=== PATIENT | female | born 1995 | race Caucasian/White ===

== ENCOUNTER 2020-06-10 12:13 | Outpatient (CLI) | payer BC, SELFPAY ==
--- NOTE | 2020-06-10 12:32 | US_ITS ---
WS: [id number] TRANSABDOMINAL FIRST TRIMESTER ULTRASOUND REASON FOR EXAM: NORMAL ,PRIMIGRAVIDA : 1 PARA: 0 COMPARISON: None available. FINDINGS: Cervical length is 4.3 cm; closed. Single live intrauterine . [place] rump length measuring 5.6 cm. EGA 12 weeks 1 day 97.5 percentile (11 weeks 1 day to 13 weeks 1 day). cardiac tones 144 BPM. Estimated date of delivery 12/22/2020. Right ovary measures 2.8 cm x 2.6 cm x 1.8 cm. Left ovary measures 2.4 cm x 2.7 cm x 2.3 cm. No fluid in the cul-de-sac. No pelvic mass. US/US OB <= 14 weeks fetus [id number] IMPRESSION: Single viable intrauterine with EGA of 12 weeks 1 day.
== END 2020-06-10 12:14 | disposition home or self-care (01) ==
PROVIDERS: Visit Provider Family Medicine
DX: Z34.01 Encounter for supervision of normal first pregnancy, first trimester; Z3A.12 12 weeks gestation of pregnancy
CPT/HCPCS: 76801

== ENCOUNTER 2020-08-08 12:46 | Outpatient (CLI) | payer OTHER, BC, SELFPAY ==
--- NOTE | 2020-08-08 12:56 | US_ITS ---
WS: [id number] ULTRASOUND OB COMPLETE TECHNIQUE: Complete ultrasound. CLINICAL INFORMATION: ANATOMY COMPARISON: None. FINDINGS: Cervix measures 6.2 cm Single interuterine gestation is identified with vertex presentation. Placenta is anterior. Placenta grade 0. Normal amniotic fluid volume. cardiac activity: 157 BPM. AGA: 21w0d NADEEM by ultrasound: 12/19/2020 Estimated weight: 396 g., %. BDP: 4.8 cm = 20w4d HC: 18.6 cm = 21w0d AC: 16.2 cm = 21w2d FEMUR LENGTH: 3.4 cm = 20w6d Anatomic survey: Four-chamber heart view difficult to visualize. Anatomic survey is otherwise normal. Normal stomach. Kidneys and bladder are normal. Normal 3 vessel cord. Normal 3 vessel cord insertion. Normal spine. Intracranial contents are normal. Normal posteri or fossa and cisterna magna. US/US OB >= 14 weeks fetus [id number] IMPRESSION: 1. Single intrauterine with visualized cardiac activity. AGA 21w0d w ith NADEEM 12/19/2020. 2. Placenta is anterior. No evidence of abruption or previa. 3. Four-chamber heart view difficult to visualize. Recommend additional attemp t in one to 2 weeks. 4. Anatomic survey is otherwise normal. 5. Normal amniotic fluid volume.
== END 2020-08-08 12:47 | disposition home or self-care (01) ==
PROVIDERS: PCP Family Medicine; Visit Provider Family Medicine
DX: Z34.00 Encounter for supervision of normal first pregnancy, unspecified trimester (principal)
CPT/HCPCS: 76805

== ENCOUNTER 2020-08-24 13:42 | Outpatient (CLI) | payer OTHER, BC, SELFPAY ==
--- NOTE | 2020-08-24 13:50 | US_ITS ---
WS: [id number] ULTRASOUND EARLY TECHNIQUE: Transabdominal sonography of the pelvis was performed. CLINICAL INFORMATION: SUPERVISION NORMAL LMP: 03/24/2020 Beta hCG: Unknown. COMPARISON: August 08, 2020 FINDINGS: Cervix measures 3.1 cm UTERUS AND GESTATIONAL SAC Four-chamber heart is normal in appearance today. Normal amniotic fluid volume. Single vertical pocke t 5.3 CM. FREE FLUID None. US/US OB limited [id number] IMPRESSION: 1. Cervix is closed measuring 3.1 cm 2. Four-chamber heart view is better visualized today and normal in appearance . 3. Normal amniotic fluid volume.
== END 2020-08-24 13:43 | disposition home or self-care (01) ==
LOC: RAD 13:45
PROVIDERS: PCP Family Medicine; Visit Provider Family Medicine
DX: Z34.00 Encounter for supervision of normal first pregnancy, unspecified trimester (principal)
CPT/HCPCS: 76815

== ENCOUNTER 2020-12-19 08:00 | Inpatient (IN) | payer OTHER, BC, SELFPAY ==
[2020-12-19] VITALS (27 sets, daily range): BP systolic 112–137; BP diastolic 61–84; PULSE 84–100; RESP 16–18; TEMP 36.5–36.8; BMI 41.5
--- NOTE | 2020-12-19 08:54 | PM.HP ---
Providers/Chief Complaint Admitting Physician: Tariq Smith MD Primary Care Provider: Tariq Smith MD Chief Complaint: Gestational Hypertension History of Present Illness Brittany Mcdermott is a 25 year old at 38.4 weeks gestation by LMP consistent with 12-week ultrasound. Her is complicated by gestational hypertension without severe features. The patient is presenting to the OB unit secondary to a scheduled induction of labor because of gestational hypertension with increasing 24-hour total urine protein. Her 24-hour urine protein was 231 last week and she is beginning to have increasing swelling and brisk reflexes. For this reason he was felt best to proceed with induction of labor. The patient currently denies any chest pains, shortness of breath, headaches, flashes of light, nausea, vomiting, diarrhea, constipation, dysuria, leakage of fluid, vaginal bleeding. Medications/Allergies Allergies Allergy/AdvReac Type Severity Reaction Status Date / Time amoxicillin Allergy ALGY-Hives Verified 12/20/20 08:25 diphenhydramine Allergy Unknown Verified 12/20/20 08:25 [From Benadryl] PFSH Acute PFSH: Medical History (Updated 12/19/20 @ 22:27 by Tariq Smith MD) Humerus fracture Social History (Updated 12/19/20 @ 22:27 by Tariq Smith MD) Smoking and tobacco status: never smoked Alcohol intake: never Substance/Drug Use: never Vitals/I&O/Wt Last Vital Signs Pulse 99 12/19/20 08:41 BP 133/78 12/19/20 08:41 Physical Exam Narrative: EXAM NARRATIVE: General: Alert and oriented x3 Eyes: Pupils equal round and reactive to light and accommodation Mouth: Mucous membranes moist, pharynx non-erythematous Cardiac: Regular rate and rhythm without murmurs Lungs: Clear to auscultation bilaterally without wheezes, crackles or rhonchi Abdomen: Soft, non-tender, fundus consistent with gestational age Extremities: +2 pitting edema in the bilateral lower extremities with brisk deep tendon reflexes. Data : 12/19/20 09:20 12/19/20 09:20 A&P Additional A&P Information The patient is feeling well today. Her blood pressure initially was 133/78. She is not having any severe features at this time. We will check labs to rule out underlying preeclamptic issues. I feel that she has not reached preeclampsia at this time. We will proceed with induction of labor with Cytotec as she is closed, thick and high. I discussed the possible risks and benefits of induction of labor at this time. The patient and her significant other are in agreement with the current plan of care. All questions were answered. Attestations Medical Necessity Statement*: The patient will be here for greater than 2 midnights due to routine intrapartum and management of labor and delivery. Coding Level of Care Code Acute Trolley Car Overhauler for Dinorah Lopez
[2020-12-19] MEDS: miSOPROStol 100 mcg tablet 25 MCG VAGINAL (09:38)
[2020-12-19 09:47] LABS: Basophils # 0.1 10^3/uL (0.0-0.1); Basophils % 0.5 %; Eosinophils # 0.2 10^3/uL (0.0-0.8); Eosinophils % 1.7 %; Hematocrit 37.3 % (37.0-47.0); Hemoglobin 12.2 g/dL (11.5-15.3); Lymphocytes # 1.7 10^3/uL (0.8-4.8); Lymphocytes % 16.9 %; Mean Corpuscular HGB Conc 32.7 g/dL (30.0-36.0); Mean Corpuscular Hemoglobin 29.3 pg (28.0-34.0); Mean Corpuscular Volume 89.7 fL (81-99); Mean Platelet Volume 10.2 fL (7.4-10.4); Monocytes # 0.8 10^3/uL (0.2-0.9); Monocytes % 8.2 %; Neutrophils # 7.29 10^3/uL (1.8-7.7); Neutrophils % 71.9 %; Nucleated Red Blood Cells % 0 %; Platelet Count 256 10^3/cmm (130-400); Red Blood Count 4.16 10^6/uL (4.1-5.3); Red Cell Distribution Width 13.8 % (12.1-15.1); White Blood Count 10.1 10^3/uL (4.0-10.0)
[2020-12-19 09:54] LABS: Alanine Aminotransferase 15 U/L (0-33); Albumin Level 3.5 g/dL (3.5-5.2); Alkaline Phosphatase 172 IU/L (35-105); Anion Gap 14.1 (5-19); Aspartate Amino Transferase 20 U/L (0-32); Blood Urea Nitrogen 8 mg/dL (6-20); Calcium 8.6 mg/dL (8.5-10.5); Carbon Dioxide 21 mmol/L (22-29); Chloride 107 mmol/L (98-107); Globulin 2.2 g/dL (1.3-4.6); Glomerular Filtration Rate 149.1 mL/min (90-130); Glucose 90 mg/dL (65-115); Osmolality Calculated 284 mOsm/kg (285-295); Potassium 4.1 mmol/L (3.5-5.1); Sodium 138 mmol/L (136-145); Total Bilirubin 0.2 mg/dL (0.15-1.2); Total Protein 5.7 g/dL (6.6-8.7); Uric Acid 4.7 mg/dL (2.4-5.7)
[2020-12-19 10:03] LABS: Urine Creatinine 25 mg/dL (28-217); Urine Protein Random 4 mg/dL
[2020-12-19 10:11] LABS: UPRO/UCREAT Ratio 0.16 mg/mg CR
[2020-12-19] MEDS: lactated ringers 1,000 ML 999 ML IV (12:04)
[2020-12-20] VITALS (69 sets, daily range): BP systolic 103–210; BP diastolic 51–117; PULSE 67–129; RESP 16; TEMP 36.6–38.3; O2SAT 96–97
--- NOTE | 2020-12-20 | PC.NURSE ---
Discussed cervical exam at this time with pt, as it has been four hours since last exam I could check her cervix at this time. She stated that she would like to wait.
[2020-12-20] MEDS: miSOPROStol 100 mcg tablet 25 MCG VAGINAL (03:40)
--- NOTE | 2020-12-20 08:28 | P.PN_ITS ---
Subjective Subjective: Interval history: The patient is feeling well today. She received a second dose of Cytotec overnight. She denies any headaches, flashes of light, nausea, vomiting. Overall she is comfortable. She is feeling contractions, however they are mild. Vitals/I&O/Wt Last Vital Signs Temp 98.3 F 12/19/20 15:47 Pulse 82 12/20/20 08:03 Resp 18 12/19/20 15:47 BP 128/81 12/20/20 08:03 12/19/20 12/20/20 12/20/20 22:59 06:59 14:59 Intake Total 500 / 2500.0 Balance 500 / 2500.0 Weight last 48 hrs Weight 250 lb Physical Exam Narrative: EXAM NARRATIVE: General: Alert and oriented x3 Eyes: Pupils equal round and reactive to light and accommodation Mouth: Mucous membranes moist, pharynx non-erythematous Cardiac: Regular rate and rhythm without murmurs Lungs: Clear to auscultation bilaterally without wheezes, crackles or rhonchi Abdomen: Soft, non-tender, fundus consistent with gestational age Extremities: +2 pitting edema in the bilateral lower extremities with brisk deep tendon reflexes. Cervical exam: 3/80/-3/vertex/well applied Data : 12/19/20 09:20 12/19/20 09:20 A&P Additional A&P Information The patient received a second dose of Cytotec overnight. She has changed to 3 cm dilation on my exam. She is 80% effaced. The head is currently well ap plied. We will plan to start IV Pitocin to augment labor and go from there. If needed AROM could be performed. Currently blood pressures are still stable. The patient is showing no signs of severe blood pressure readings. All questions were answered. Continue with current plan of care. Attestations Medical Necessity Statement*: Patient continues to need inpatient care and her stay will cross 2 midnights. Coding Level of Care Code Acute Rectangular Tank Cooper for Dinorah Lopez
[2020-12-20] MEDS: dextrose 5%-lactated ringers 1,000 ML 125 ML IV ×3 (08:38→20:41)
[2020-12-20] MEDS: oxytocin 30 UNIT/500 ML BAG IV (08:39)
[2020-12-20] MEDS: lactated ringers 1,000 ML 999 ML IV ×3 (14:38→22:30)
[2020-12-20] MEDS: ondansetron 2 mg/ML SDV 2 mL 4 MG IVP (15:08)
--- NOTE | 2020-12-20 15:44 | ANES.PREANE2 ---
Pre-Anesthetic Assessment Pre-Anesthetic Assessment: Height/Weight: Height 1.65 m Weight 113.398 kg Temp Pulse Resp BP Pulse Ox 97.8 F 90 16 120/56 96 12/20/20 10:35 12/20/20 15:41 12/20/20 10:35 12/20/20 15:41 12/20/20 15:31 Preop Diagnosis: IUP Proposed Procedure: epidural Familial anesthetic complications: none Was Beta Comfort taken within 24 hours: N/A Was Clonidine taken within 24 hours: N/A Last intake: ice chips Social: Social History: No alcohol and No tobacco Exam: Pre-Anes Outpt Exam: alert, oriented x 3, clear to auscultation bilaterally and regular rate & rhythm Airway: Cervical ROM: WNL MP: 3 Dentition: Full CV/HEM: Comments: gestational HTN Metabolic: Metabolic: Morbid obesity Anesthetic Plan: ASA status: 2 Anesthesia: Regional (specify below) Risk of > 500 ml blood loss (7ml/kg in children): No Meds/Allergies Current Medications: Current Medications Generic Name Dose Route Start Last Admin Trade Name Freq PRN Reason Stop Dose Admin Lactated Ringer's 1,000 mls @ 999 m ls/hr 12/19/20 08:55 12/20/20 14:38 Lactated Ringers IV 999 mls/hr .Q1H1M PRN Administration BLEEDING Lactated Ringer's 1,000 mls @ 999 m ls/hr 12/19/20 08:55 12/19/20 14:10 Lactated Ringers IV Infused .Q1H1M PRN Infusion Per L&D Rescitati on Protocol Dextrose/Lactated Ringer's 1,000 mls @ 125 m ls/hr 12/19/20 09:00 12/20/20 15:35 Dextrose 5%-Lact ated Ringers IV Infused .Q8H TASHA Infusion Oxytocin 30 unit in 500 ml s @ 1 mls/hr 12/20/20 08:30 12/20/20 08:39 Pitocin IV 1 milliunit/min .Q24H TASHA 1 mls/hr Administration Protocol 1 MILLIUNIT/MIN Ropivacaine 200 mg in 100 mls @ 13 mls/hr 12/20/20 14:45 12/20/20 15:35 Naropin Premix EPIDURAL 13 mls/hr .Q7H42M TASHA Administration Misoprostol 25 mcg 12/20/20 02:08 12/20/20 03:40 Misoprostol 100 Mcg Tablet VAGINAL 25 mcg Q4H PRN Administration induction Ondansetron HCl 4 mg 12/19/20 08:55 12/20/20 15:08 Ondansetron 2 Mg /Ml Sdv 2 Ml IVP 4 mg Q4H PRN Administration NAUSEA AND VOMITI NG PFSH Anesthesia PFSH: Medical History (Updated 12/19/20 @ 22:27 by Tariq Smith MD) Humerus fracture Social History (Updated 12/19/20 @ 22:27 by Tariq Smith MD) Smoking and tobacco status: never smoked Alcohol intake: never Substance/Drug Use: never Female Reproductive History: Date of last menstrual period: 03/24/21 : 1 Data Anesthesia CBC & Chem 7: 12/19/20 09:20 12/19/20 09:20 Other Labs: Laboratory Results - last 48 hr 12/19/20 12/19/20 12/19/20 09:20 09:20 09:20 WBC 10.1 H RBC 4.16 Hgb 12.2 Hct 37.3 MCV 89.7 MCH 29.3 MCHC 32.7 RDW 13.8 Plt Count 256 MPV 10.2 Neut % (Auto) 71.9 Lymph % (Auto) 16.9 [place] % (Auto) 8.2 Eos % (Auto) 1.7 Baso % (Auto) 0.5 Neut # (Auto) 7.29 Lymph # (Auto) 1.7 [place] # (Auto) 0.8 Eos # (Auto) 0.2 Baso # (Auto) 0.1 Nucleated RBC % (auto) 0 Nucleated RBCs # 0.0 Sodium 138 Potassium 4.1 Chloride 107 Carbon Dioxide 21 L Anion Gap 14.1 BUN 8 Creatinine 0.5 GFR Calculation 149.1 H Glucose 90 Calculated Osmolality 284 L Uric Acid 4.7 Calcium 8.6 Total Bilirubin 0.2 AST 20 ALT 15 Alkaline Phosphatase 172 H Total Protein 5.7 L Albumin 3.5 Globulin 2.2 U Random Total Protein 4 Urine Creatinine 25 L Protein/Creatinin Ratio 0.16 Cardiac Studies: No Data to Display
--- NOTE | 2020-12-20 15:44 | ANES.PROC ---
Anesthesia Procedures Procedure/Date: 12/20/20 Epidural: Time Out Performed: Yes Consents Signed: Procedure Consent and NPO Consent Consent: requested by attending/covering physician and risks and benefits reviewed Lumbar Level: L3-L4 Epidural position: sitting Epidural procedure: sterile prep of area, 1% lidocaine to numb the area, 18 g needle, negative for paresthesia passed, neg for paresthesia, test dose given, 1.5% xylocaine 1:200k epi (5 cc), 0.2% Ropivacaine bolus ml (5 cc), placed PCEA, no systemic response, sterile dressing applied, L.U.D. no apparent complications and 0.2% Ropiavacaine @ mls/hr (13) Additional Comments: QUINN at 6 cm, threaded to 12 cm
--- NOTE | 2020-12-20 17:48 | ANES.PROC ---
Anesthesia Procedures Procedure/Date: 12/20/20 Other Information: Pt C/O pressure and discomfort. Lido 2% 5cc and Fentanyl 100 mcg given with expressed relief.
[2020-12-20] MEDS: ceFOXitin 2,000 MG in sodium chloride 0.9% (plus) 50 ML 100 MG IV (20:52)
--- NOTE | 2020-12-20 22:17 | PM.MISC ---
Miscellaneous Note Note: The patient has been making change throughout the day and had spontaneous rupture of membranes with thick meconium. She has made slow cervical change and was complete by just after 8 PM. She did not follow the labor curve well. The patient has been pushing for 2 hours and despite pushing hard, the infant's head has not descended well. I have concern that there is cephalo-pelvic disproportion causing this. The patient was measuring 41 weeks at 38 weeks gestation and she gained over 60 pounds during her . These in combination with pushing for 2 hours and having little descent would certainly increase the risk for complications of the vaginal delivery. I discussed these risks with the patient and her and they are in agreement to proceed with a primary low transverse section. The patient is currently on cefoxitin secondary to fever that started during her pushing. I will add clindamycin for anaerobic coverage. All questions have been answered. Proceed with primary low transverse section.
[2020-12-20] MEDS: famotidine 20 mg/2 mL INJ IVP (22:35)
[2020-12-20] MEDS: citric acid-sodium citrate 30 mL UDC PO (22:35)
[2020-12-20] MEDS: metoclopramide 5 mg/mL SDV 2 mL 10 MG IVP (22:35)
[2020-12-21] VITALS (21 sets, daily range): BP systolic 106–139; BP diastolic 55–89; PULSE 90–132; RESP 16–18; TEMP 36.6–37.1; O2SAT 95–99
--- NOTE | 2020-12-21 01:16 | P.OP_ITS ---
Operative Report Date of procedure: December 21, 2020 Pre-op Diagnosis: IUP Pre-op Diagnosis: 1. Intrauterine at 38.5 weeks gestation 2. Cephalopelvic disproportion 3. Thick meconium present 4. Gestational hypertension Post-op Diagnosis: 1. Intrauterine status post primary low transverse section at 38.5 weeks gestation 2. Cephalopelvic disproportion 3. Thick meconium present 4. Gestational hypertension 5) Healthy male weighing 9 pounds 11 ounces with Apgars of 10 and 10 Post-op Findings: Thick meconium Placenta with heavy calcifications. Central umbilical cord insertion site. Healthy male weighing 9 pounds 11 ounces with Apgars of 10 and 10 Procedure Done: Primary low transverse section Specimens removed/disposition: Placenta discarded Pathology: none sent Surgeon: Tariq Smith Anesthesia: Epidural Estimated blood loss (mL): 1,000 Complications: Heavy initial bleeding that improved with suturing. Condition: stable Disposition: floor Brief History: Brittany Mcdermott is a 25 year old G1 now P1 status post primary low transverse section at 38.5 weeks gestation by LMP consistent with 12-week ultrasound. Her was complicated by gestational hypertension without severe features. The patient was brought in for induction of labor at 38.4 weeks gestation secondary to gestational hypertension with increasing 24- hour urine protein. She was started on Cytotec and given 2 doses. She made slow change and was 3 cm by the morning of 12/20/2020. The patient was then started on IV Pitocin and she made slow change and SROM took place at 1429 on 12/20/2020. Thick meconium was present. The patient was 5 cm at that time. The patient continued to make slow but steady change and was complete by 2008 on 12/20/2020. The patient began pushing at 2011 on 12/20/2020. The patient pushed well, however after 2 hours of pushing, the patient was exhausted and the 's head was still at -1 station. There was concern that the patient had been measuring 41 weeks gestation at 38 weeks gestation and she had also been slow on the labor curve. Because there was not significant movement after 2 hours of pushing, it was felt that the risks of continuing with the vaginal delivery were higher than the risk for section due to likely cephalopelvic disproportion and it was decided to go back for a primary low transverse section. Procedure: After informed consent was obtained, the patient was taken to the operating room and the patient was prepped and draped in a normal sterile f ashion in the dorsal supine position. The epidural was dosed and adequate anesthesia was confirmed. At 2317 on 12/20/2020, a Pfannenstiel skin incision was made and carried through to the underlying layer of fascia using a scalpel. The fascial incision was then extended laterally using curved Mayos. Heavy bleeding was noted from multiple vessels, so these were cauterized. Adequate hemostasis was obtained. The fascia was then grasped with Lina clamps and the underlying rectus muscles were dissected off taking care to avoid injury to the underlying tissues. The peritoneum was dissected bluntly with one digit and a small window was cut using Metzenbaums. It was then bluntly. The bladder blade was placed and the vesicouterine peritoneum was well below the lower uterine segment of the uterus. The uterine incision was made in the lower uterine segment in a transverse fashion with the scalpel at 2326. The amniotic membrane was entered bluntly and a large amount of heavy meconium stained fluid was noted. The infant's head delivered atraumatically without difficulty at 2328. There was no nuchal cord. The mouth and nose were suctioned repeatedly. The rest of the infant delivered without difficulty. The was crying immediately upon delivery. The cord was clamped and cut and the infant was handed to the awaiting pediatric nurses. The placenta was then manually expressed. The uterus was then exteriorized from the abdomen and a wet lap was used to clear the uterus of clots and debris. The bladder blade was reinserted and the uterine incision was closed using 0 chromic in a running locking fashion. Heavy bleeding was again noted at the incision site prior to placing the first layer. It significantly decreased after this. A second layer of the same suture was used in the same manner. A third layer using 0 chromic was used to obtain hemostasis. Excellent hemostasis was obtained. Next the posterior cul-de-sac was inspected and was cleared of any blood. The uterus was then placed back into the abdomen. The gutters were cleared of any further clots and debris and the uterine incision was again inspected and hemostasis was noted. The subfascial tissue was inspected for hemostasis and the peritoneum was re-approximated using 2-0 plain in a running fashion. The fascia was then re-approximated using 0 Vicryl in a running fashion. The subcutaneous tissue was inspected for hemostasis. Stacey's fascia was then re- approximated using 3-0 plain in a running fashion. Good hemostasis was noted. The subcutaneous tissue was then re-approximated using a subcuticular stitch. The patient tolerated the procedure well and was recovered in stable condition. Estimated blood loss was 1000 mL. Urine in the Newman catheter was clear. The patient was taken to recovery in good condition.
--- NOTE | 2020-12-21 02:00 | ANE.PACU2 ---
Inpatient post-anesthesia follow up: Airway intact: Yes Vital signs: Temperature 98.4 F Pulse Rate 118 Respiratory Rate 16 Blood Pressure 107/67 Pulse Oximetry 95 Oxygen Delivery Me thod Room Air Oxygen Flow Rate Fraction of Inspir ed Oxygen Hydration adequate: Yes Nausea and vomiting: No Pain level: 2 Mental status: Baseline
[2020-12-21] MEDS: dextrose 5%-lactated ringers 1,000 ML 125 ML IV ×2 (02:57→13:10)
--- NOTE | 2020-12-21 03:19 | PC.NURSE ---
Wali Duarte removed pts epidural at this time.
[2020-12-21] MEDS: ketorolac 30 mg/mL INJ IVP ×4 (04:17→21:10)
--- NOTE | 2020-12-21 05:46 | PC.NURSE ---
Epidural was removed by Wali Duarte in OB 1 @0055 12/21/20
[2020-12-21] MEDS: ceFOXitin 2,000 MG in sodium chloride 0.9% (plus) 50 ML 100 MG IV ×3 (06:15→21:13)
[2020-12-21] MEDS: clindamycin 900 MG/50 ML PREMIX 100 MG IV ×2 (07:38→17:45)
[2020-12-21 14:37] LABS: Hematocrit 28.9 % (37.0-47.0); Hemoglobin 9.5 g/dL (11.5-15.3); Mean Corpuscular HGB Conc 32.9 g/dL (30.0-36.0); Mean Corpuscular Hemoglobin 29.8 pg (28.0-34.0); Mean Corpuscular Volume 90.6 fL (81-99); Mean Platelet Volume 10.1 fL (7.4-10.4); Platelet Count 261 10^3/cmm (130-400); Red Blood Count 3.19 10^6/uL (4.1-5.3); Red Cell Distribution Width 14.1 % (12.1-15.1); White Blood Count 19.4 10^3/uL (4.0-10.0)
--- NOTE | 2020-12-21 15:14 | PC.NURSE ---
[id number] director of student life came to this nurse and asked to look at patients IV, this nurse went into room and found IV fluids and antibiotics were turned off at this time, IV site was found to be slightly hard and red. IV was discontinued at this time and fluids and antibiotics were placed on patients other IV.
--- NOTE | 2020-12-21 16:29 | P.PN_ITS ---
Subjective Subjective: Interval history: The patient is doing well today. She is ambulating, passing gas, tolerating food by mouth and her pain is well controlled. Her bleeding is decreasing well. Vitals/I&O/Wt Last Vital Signs Temp 97.9 F 12/21/20 10:30 Pulse 98 12/21/20 10:30 Resp 16 12/21/20 10:30 BP 124/84 12/21/20 10:30 Pulse Ox 97 12/21/20 10:30 12/21/20 12/21/20 12/21/20 06:59 14:59 22:59 Intake Total 2900 / 4361.333 100 / 100 Output Total 1650 / 1850 350 / 350 110 / 460 Balance 1250 / 2511.333 -250 / -250 -110 / -360 Physical Exam Narrative: EXAM NARRATIVE: General: Alert and oriented x3 Cardiac: Regular rate and rhythm without murmurs Lungs: Clear to auscultation bilaterally without wheezes, crackles or rhonchi Abdomen: Soft, mild tenderness present. Uterus is firm and at the umbilicus. Extremities: +2 pitting edema in the bilateral lower extremities with brisk deep tendon reflexes. Urinary Catheter Management^: Newman: Cath Placed During This Visit: yes, but has since been removed by the nurse Reason for Continuing Indwelling Catheter: Required Immobilization for Trauma or Surgery or Anesthesia Urinary Catheter Date of Insertion: 12/20/20 Urinary Catheter Time of Insertion: 22:45 Date Urinary Catheter Removed: 12/20/20 Time Urinary Catheter Discontinued: 20:04 Data : 12/21/20 14:25 12/19/20 09:20 A&P Additional A&P Information The patient is doing well at this time. She is showing no signs of significant complications. Her white blood cell count was elevated and her hemoglobin was 9.5. This is likely consistent with endometritis and associated bleeding during the . We will continue with the IV antibiotics for 24 hours as scheduled. As long as she continues to do well we will discontinue at that time. Her urine output is adequate, however not significant yet. We will continue with the Newman catheter until her urine output is starting to improve. Continue with routine care otherwise. Plan for discharge home on Saturday if she does well. Attestations Medical Necessity Statement*: The patient will be here for greater than 2 midnights due to routine intrapartum and management after section. Coding Level of Care Code Acute Rural Mail Contractor for Dinorah Lopez
[2020-12-21] MEDS: docusate sodium 100 mg Capsule PO (21:11)
[2020-12-22 05:13] LABS: Basophils # 0.1 10^3/uL (0.0-0.1); Basophils % 0.6 %; Eosinophils # 0.2 10^3/uL (0.0-0.8); Eosinophils % 1.2 %; Hematocrit 23.8 % (37.0-47.0); Lymphocytes # 2.1 10^3/uL (0.8-4.8); Lymphocytes % 15.6 %; Mean Corpuscular HGB Conc 33.6 g/dL (30.0-36.0); Mean Corpuscular Hemoglobin 30.7 pg (28.0-34.0); Mean Corpuscular Volume 91.2 fL (81-99); Mean Platelet Volume 10.2 fL (7.4-10.4); Monocytes # 1.1 10^3/uL (0.2-0.9); Monocytes % 7.9 %; Neutrophils # 10.02 10^3/uL (1.8-7.7); Neutrophils % 74.2 %; Nucleated Red Blood Cells % 0 %; Platelet Count 226 10^3/cmm (130-400); Red Blood Count 2.61 10^6/uL (4.1-5.3); Red Cell Distribution Width 14.1 % (12.1-15.1); White Blood Count 13.5 10^3/uL (4.0-10.0)
[2020-12-22 06:00] VITALS: BP 121/72; PULSE 92; RESP 16; TEMP 36.7
--- NOTE | 2020-12-22 08:21 | P.PN_ITS ---
Subjective Subjective: Interval history: The patient is doing well today. She is ambulating, voiding, passing gas and tolerating food by mouth. Her pain is well controlled. She has no concerns. Vitals/I&O/Wt Last Vital Signs Temp 98.1 F 12/22/20 06:00 Pulse 92 12/22/20 06:00 Resp 16 12/22/20 06:00 BP 121/72 12/22/20 06:00 Pulse Ox 98 12/21/20 22:05 12/21/20 12/22/20 12/22/20 22:59 06:59 14:59 Intake Total 3600 / 3700 250 / 3950 Output Total 720 / 1070 Balance 2880 / 2630 250 / 2880 Physical Exam Narrative: EXAM NARRATIVE: General: Alert and oriented x3 Cardiac: Regular rate and rhythm without murmurs Lungs: Clear to auscultation bilaterally without wheezes, crackles or rhonchi Abdomen: Soft, mild tenderness present. Uterus is firm and 1 cm below the umbilicus. Extremities: +1 pitting edema in the bilateral lower extremities with brisk deep tendon reflexes. Urinary Catheter Management^: Newman: Cath Placed During This Visit: yes, but has since been removed by the nurse Reason for Continuing Indwelling Catheter: Perioperative Use in Selected Surgeries Urinary Catheter Date of Insertion: 12/20/20 Urinary Catheter Time of Insertion: 22:45 Date Urinary Catheter Removed: 12/21/20 Time Urinary Catheter Discontinued: 20:30 Data : 12/22/20 05:00 12/19/20 09:20 A&P Additional A&P Information The patient is doing well status post section on 12/20/2020. We will plan for discharge home tomorrow as long as everything continues to go well. We discussed routine post care. All questions were answered. The patient and her are in agreement with the current plan of care. Attestations Medical Necessity Statement*: The patient continues need inpatient section. Her stay is crossing 2 midnights. Coding Level of Care Code Acute Manager Water [employer] for Dinorah Lopez
[2020-12-22] MEDS: docusate sodium 100 mg Capsule PO ×2 (10:04→17:08)
[2020-12-22] MEDS: ferrous sulfate EC 325 mg Tablet PO ×2 (10:04→17:08)
[2020-12-22] MEDS: prenatal vitamin Capsule 1 CAP PO (10:04)
[2020-12-22 11:30] VITALS: BP 132/83; PULSE 99; RESP 17; TEMP 36.7; O2SAT 97
[2020-12-22] MEDS: ibuprofen 800 mg tablet PO ×2 (12:10→21:06)
[2020-12-22 17:30] VITALS: BP 138/84; PULSE 99; RESP 18; TEMP 36.7; O2SAT 97
[2020-12-22 21:07] VITALS: BP 144/88; PULSE 98; TEMP 36.9; O2SAT 97
[2020-12-23 04:14] VITALS: BP 124/84; PULSE 98; TEMP 36.8; O2SAT 98
--- NOTE | 2020-12-23 08:01 | PM.DCS ---
Discharge Providers Date of Admission: 12/19/20 08:00 Date of Discharge: December 23, 2020 Attending Provider at Admission: Tariq Smith MD Attending Provider at Discharge: Tariq Smith MD Primary Care Provider: Tariq Smith MD Diagnoses at Discharge Discharge Diagnosis (1) Intrauterine : Status: Acute (2) Gestational hypertension: Status: Acute (3) Delivery by section: Status: Acute Reason for Visit Reason for Visit: Gestational Hypertension Hospital Course Hospital Course Brittany Mcdermott is a 25 year old G1 now P1 status post primary low transverse section at 38.5 weeks gestation by LMP consistent with 12-week ultrasound. Her was complicated by gestational hypertension without severe features. The patient was brought in for induction of labor at 38.4 weeks gestation secondary to gestational hypertension with increasing 24-hour urine protein. She was started on Cytotec and given 2 doses. She made slow change and was 3 cm by the morning of 12/20/2020. The patient was then started on IV Pitocin and she made slow change and SROM took place at 1429 on 12/20/2020. Thick meconium was present. The patient was 5 cm at that time. The patient continued to make slow but steady change and was complete by 2008 on 12/20/2020. The patient began pushing at 2011 on 12/20/2020. The patient pushed well, however after 2 hours of pushing, the patient was exhausted and the 's head was still at -1 station. There was concern that the patient had been measuring 41 weeks gestation at 38 weeks gestation and she had also been slow on the labor curve. Because there was not significant movement after 2 hours of pushing, it was felt that the risks of continuing with the vaginal delivery were higher than the risk for section due to likely cephalopelvic disproportion and it was decided to go back for a primary low transverse section. This section went well without any complications other than initially heavy bleeding. Good hemostasis was obtained, however the patient's blood count did drop. For this reason she was placed on iron by mouth. The patient has done well and is ambulating, voiding, passing gas and tolerating food by mouth. Her incision is clean and dry however there are some signs of reaction to the benzoin or Steri-Strips. Approximately half of them were removed prior to discharge to decrease the reaction. The patient is to watch for signs of infection let me know if she is having any. We will see her on Saturday for follow-up. The patient is doing well in routine post care was discussed. All questions were answered. The patient and her are in agreement with discharge home at this time. Physical Exam Narrative: EXAM NARRATIVE: General: Alert and oriented x3 Cardiac: Regular rate and rhythm without murmurs Lungs: Clear to auscultation bilaterally without wheezes, crackles or rhonchi Abdomen: Soft, mild tenderness present. Uterus is firm and 1 cm below the umbilicus. Incision site is clean and dry with signs of blistering in the locations of the Steri-Strips and benzoin. Mild erythema surrounding this area present. Mild swelling present. Extremities: +1 pitting edema in the bilateral lower extremities Urinary Catheter Management^: Newman: Cath Placed During This Visit: yes, but has since been removed by the nurse Reason for Continuing Indwelling Catheter: Perioperative Use in Selected Surgeries Urinary Catheter Date of Insertion: 12/20/20 Urinary Catheter Time of Insertion: 22:45 Date Urinary Catheter Removed: 12/21/20 Time Urinary Catheter Discontinued: 20:30 Discharge Data Vitals: Last Vital Signs Temp 98.3 F 12/23/20 04:14 Pulse 98 12/23/20 04:14 Resp 18 12/22/20 17:30 BP 124/84 12/23/20 04:14 Pulse Ox 98 12/23/20 04:14 Discharge Plan Discharge Patient Disposition: Home Condition: Good Prescriptions: New oxycodone-acetaminophen 5-325 mg Tablet 1 tab PO Q6H PRN (Reason: Moderate To Severe Pain) Qty: 14 RF: 0 -U 106.5-1 mg Capsule 1 cap PO BREAKFAST Qty: 30 RF: 0 ibuprofen 800 mg Tablet 800 mg PO TID Qty: 60 RF: 0 ferrous sulfate 325 mg (65 mg iron) Tablet,Delayed Release (Dr/Ec) 325 mg PO BIDWM 30 Days Qty: 60 RF: 0 Discharge Orders: Discharge Order (Routine); Ordered 12/23/20 Ordered By: Tariq Smith Referrals: Tariq Smith MD [Primary Care Provider] - 12/26/20 2:00 pm (Your follow up appointment has been scheduled for 12/26/2020 at 2:[address] [place].) Discharge Diet: Advance as tolerated Discharge Activity: Limit activity as instructed Patient Instructions: Vitamins (By mouth), Depression (GEN), Pre-eclampsia and Eclampsia (DC), OB C, OB Discharge Report, OB Food/Drug Interaction Guide, Opioid Safety, OB Your Care - [facility], OB Proud Parent Packet, Abnormal Bleeding Activity Restrictions/Additional Instructions: - Do not lift anything heavier than your in the car seat for the first 3 weeks. - If you have any concern for infection in the incision site, please seek immediate medical attention. Discharge Attestations Time Spent in Discharge Care*: greater than 30 min Quality Metrics Clinical Quality Measures During this hospital stay, did patient experience: None Coding Level of Care Code Acute Chg FW DC note Diagnoses Intrauterine Z34.90 Gestational hypertension O13.9 Delivery by section
[2020-12-23 09:13] VITALS: BP 128/68; PULSE 72; RESP 17; TEMP 36.8
[2020-12-23 09:15] VITALS: BP 128/68; PULSE 72; RESP 17; TEMP 36.8
== END 2020-12-23 09:25 | disposition home or self-care (01) | DRG 787 ==
PROVIDERS: Admitting Provider Family Medicine; PCP Family Medicine; Visit Provider Family Medicine
PROC: 3E0P7VZ Introduction of Hormone into Female Reproductive, Via Natural or Artificial Opening (ICD-10-PCS; CPT 59514; principal; 2020-12-20 22:45)
DX: O33.9 Maternal care for disproportion, unspecified (principal); O75.2 Pyrexia during labor, not elsewhere classified; O13.4 Gestational [pregnancy-induced] hypertension without significant proteinuria, complicating childbirth; O77.0 Labor and delivery complicated by meconium in amniotic fluid; Z3A.38 38 weeks gestation of pregnancy; Z37.0 Single live birth
CPT/HCPCS: 36415; 51702; 59025; 59409; 80053; 82570; 84156; 84550; 85025; 85027; 96374; 96375; 98960; J0694; J1885; J2250; J2274; J2405; J2704; J2765; J2795; J3010; J3490; J7030

== ENCOUNTER → 2022-05-31 12:45 | Outpatient (BNVA) | payer OTHER, BC, SELFPAY | PROVIDERS: PCP Family Medicine; Visit Provider Family Medicine | DX: O26.899 Other specified pregnancy related conditions, unspecified trimester (principal); R30.0 Dysuria; Z3A.00 Weeks of gestation of pregnancy not specified | CPT/HCPCS: 80307; 81000; 81025; 84144; 84702; 85025; 86592; 86762; 86803; 86850; 86900; 87086; 87340; 87491; 87591; 87806; 88175 ==

== ENCOUNTER 2022-06-28 14:51 | Outpatient (CLI) | payer BC, SELFPAY ==
--- NOTE | 2022-06-28 15:15 | US_ITS ---
WS: [id number] EARLY OBSTETRICAL ULTRASOUND (<14 WEEKS). HISTORY: Dating US COMPARISON: None available. Single intrauterine gestational sac is identified. Cardiac activity at 160 BPM. [place]-rump length nilsa sures 5.5 cm which corresponds to a gestation of 12w1d. Normal-appearing yolk sac and amnion are not demonstrated. No subchorionic hemorrhage. No free fluid. Normal size ovaries with no mass. Cervix is closed. US/US OB <= 14 weeks fetus [id number] IMPRESSION: 1. Single intrauterine gestation of 12 weeks 1 day with an EDC of 01/09/2023. 2. Normal cardiac activity.
== END 2022-06-28 14:52 | disposition home or self-care (01) ==
PROVIDERS: PCP Family Medicine; Visit Provider Family Medicine
DX: Z36.87 Encounter for antenatal screening for uncertain dates (principal); Z3A.12 12 weeks gestation of pregnancy
CPT/HCPCS: 76801

== ENCOUNTER → 2022-08-06 13:03 | Outpatient (BNVA) | payer BC, SELFPAY | PROVIDERS: PCP Family Medicine; Visit Provider Family Medicine | DX: Z34.80 Encounter for supervision of other normal pregnancy, unspecified trimester (principal) | CPT/HCPCS: 81511 ==

== ENCOUNTER 2022-09-04 07:41 | Outpatient (CLI) | payer BC, SELFPAY ==
--- NOTE | 2022-09-04 08:00 | US_ITS ---
WS: [id number] ULTRASOUND OB COMPLETE TECHNIQUE: Complete ultrasound. CLINICAL INFORMATION: Anatomy US - 2-3 weeks from now COMPARISON: June 28, 2022 FINDINGS: Cervix is long and closed measuring 4.1 cm. Single interuterine gestation is identified with breech presentation. Placenta is anterior lateral. Placenta grade 0. Normal amniotic fluid volume. ELOISE 10.4 cm cardiac activity: 147 BPM. AGA: 21w4d NADEEM by ultrasound: 01/11/2023 Based on GA: 47th percentile Estimated weight: 445 g; 0 lbs. 16 oz. BDP: 4.9 cm = 20w6d HC: 19.4 cm = 21w5d AC: 16.4 cm = 21w3d FEMUR LENGTH: 3.8 cm = 22w1d Anatomic survey: Limited four-chamber cardiac view. Limited visualization of the outflow tracts. Anatomic survey is otherwise normal. Normal stomach. Kidneys and bladder are normal. Normal 3 vessel cord. Normal 3 vessel cord insertion.Normal spine. Intracranial contents are normal. Normal posterior fossa and cisterna magna. US/US OB >= 14 weeks fetus [id number] IMPRESSION: Cervix is long and closed measuring 4.1 cm. 1. Single intrauterine with visualized cardiac activity. AGA 21w4d w ith NADEEM 01/11/2023. 2. presentation is breech. 3. Limited four-chamber cardiac view. Limited visualization of the outflow tra cts. anatomic survey is otherwise normal. 4. Normal amniotic fluid volume.
== END 2022-09-04 07:42 | disposition home or self-care (01) ==
LOC: RAD 07:43
PROVIDERS: PCP Family Medicine; Visit Provider Family Medicine
DX: Z3A.21 21 weeks gestation of pregnancy; Z36.9 Encounter for antenatal screening, unspecified
CPT/HCPCS: 76805

== ENCOUNTER 2022-10-05 07:50 | Outpatient (CLI) | payer BC, SELFPAY ==
--- NOTE | 2022-10-05 08:00 | US_ITS ---
WS: [id number] ULTRASOUND OB FOCUSED HISTORY: Follow up cardiac/outflow tracts COMPARISON: 09/04/2022 Single intrauterine gestation. Vertex. Cervix is closed at 5.7 cm. heart rate at 147 BPM. Very good demonstration of four-chamber heart. Valve planes are normal position. LEFT ventricular and RIGHT ventricular outflow tracts are readily and very well seen. US/US OB limited [id number] IMPRESSION: Normal follow-up imaging of the cardiac outflow tracts.
== END 2022-10-05 07:51 | disposition home or self-care (01) ==
LOC: RAD 07:52
PROVIDERS: PCP Family Medicine; Visit Provider Family Medicine
DX: Z34.80 Encounter for supervision of other normal pregnancy, unspecified trimester (principal)
CPT/HCPCS: 76815

== ENCOUNTER → 2022-10-11 10:09 | Outpatient (BNVA) | payer BC, SELFPAY | PROVIDERS: PCP Family Medicine; Visit Provider Family Medicine | DX: Z34.80 Encounter for supervision of other normal pregnancy, unspecified trimester (principal) | CPT/HCPCS: 82950 ==

== ENCOUNTER → 2022-11-05 08:46 | Outpatient (BNVA) | payer BC, SELFPAY | PROVIDERS: PCP Family Medicine; Visit Provider Family Medicine | DX: O99.810 Abnormal glucose complicating pregnancy (principal); Z3A.00 Weeks of gestation of pregnancy not specified | CPT/HCPCS: 82951; 82952 ==

== ENCOUNTER → 2022-12-06 09:54 | Outpatient (BNVA) | payer BC, SELFPAY | PROVIDERS: PCP Family Medicine; Visit Provider Family Medicine | DX: Z34.80 Encounter for supervision of other normal pregnancy, unspecified trimester (principal); Z51.81 Encounter for therapeutic drug level monitoring; M79.10 Myalgia, unspecified site; R53.1 Weakness; R30.0 Dysuria | CPT/HCPCS: 80053; 81000; 83735; 85025; 86141; 87086 ==

== ENCOUNTER → 2022-12-13 16:14 | Outpatient (BNVA) | payer BC, SELFPAY | PROVIDERS: PCP Family Medicine; Visit Provider Family Medicine | DX: Z34.90 Encounter for supervision of normal pregnancy, unspecified, unspecified trimester (principal) | CPT/HCPCS: 87081 ==

== ENCOUNTER 2023-01-01 04:25 | Inpatient (IN) | payer BC, SELFPAY ==
[2023-01-01] VITALS (23 sets, daily range): BP systolic 102–135; BP diastolic 59–82; PULSE 83–106; RESP 17–18; TEMP 36.7–36.9; O2SAT 95–99; BMI 38.7
[2023-01-01] MEDS: ceFAZolin 2,000 MG in sodium chloride 0.9% (plus) 50 ML 100 MG IV (04:36)
[2023-01-01] MEDS: lactated ringers 1,000 ML 999 ML IV (04:36)
[2023-01-01] MEDS: citric acid-sodium citrate 30 mL UDC PO (04:37)
[2023-01-01] MEDS: famotidine 20 mg/2 mL INJ IVP (04:37)
[2023-01-01] MEDS: metoclopramide 5 mg/mL SDV 2 mL 10 MG IVP (04:37)
--- NOTE | 2023-01-01 04:44 | ANES.PREANE2 ---
Pre-Anesthetic Assessment Height/Weight: Height 1.65 m Weight 105.687 kg Pulse BP 88 130/77 01/01/23 04:02 01/01/23 04:02 Preop Diagnosis: IUP Active Labor Previous C/S Familial anesthetic complications: none Was Beta Comfort taken within 24 hours: N/A Was Clonidine taken within 24 hours: N/A Last intake: 2200- yogurt 2300 clears Social No alcohol and No tobacco Exam alert, oriented x 3, clear to auscultation bilaterally and regular rate & rhythm Airway Submandibular: within normal limits Cervical ROM: within normal limits Mallampati: Class III Dentition: full Pulmonary None reported CV/HEM None reported None reported Hepatic None reported GI Gastroesophageal Reflux Disease Metabolic None reported Musc/skel None reported Neuropsych None reported Anesthetic Plan ASA status: 2E Anesthesia: Regional (specify below) (SAB) Other Pertinent Information emergent nature due to active labor and previous c/s will proceed. NPOx 6hours light meal of yogurt appropriate. Medications/Allergies Home Medications Medication Instructions Recorded Confirmed Last Taken Type multivitamin no.51-ferrous 1 cap PO BREAKFAST #30 caps 12/23/20 12/27/22 Unknown Rx fumarate 106.5 mg-folic acid 1 mg capsule (-U) cephalexin 500 mg capsule 500 mg PO TID #30 caps 12/06/22 12/27/22 Unknown Rx Allergies Allergy/AdvReac Type Severity Reaction Status Date / Time amoxicillin Allergy ALGY-Hives Verified 12/20/20 08:25 diphenhydramine Allergy Unknown Verified 12/20/20 08:25 [From Benadryl] Current Medications Generic Name Dose Route Start Last Admin Trade Name Alibnoq PRN Reason Stop Dose Admin Lactated Ringer's 1,000 mls @ 999 mls/hr 01/01/23 04:19 01/01/23 04:36 Lactated Ringers IV 01/01/23 05:19 999 mls/hr .Q1H1M ONE Administration Cefazolin Sodium 2,000 mg/ 50 mls @ 100 mls/hr 01/01/23 04:19 01/01/23 04:36 Sodium Chloride IV 01/01/23 04:48 100 mls/hr [employer] ONE Administration Protocol [facility] Anesthesia Medical History (Updated 12/06/22 @ 09:39 by Tariq Smith MD) Humerus fracture Surgical History (Updated 05/31/22 @ 16:52 by Tariq Smith MD) Hx of section Social History Smoking and tobacco status: never smoked Alcohol intake: never Substance/Drug Use: never Female Reproductive History : 2 Data Anesthesia Cardiac Studies: No Data to Display
[2023-01-01 04:51] LABS: Basophils # 0.1 10^3/uL (0.0-0.1); Basophils % 0.4 %; Eosinophils # 0.2 10^3/uL (0.0-0.8); Eosinophils % 1.2 %; Hematocrit 40.2 % (37.0-47.0); Hemoglobin 13.3 g/dL (11.5-15.3); Lymphocytes # 2.9 10^3/uL (0.8-4.8); Lymphocytes % 16.9 %; Mean Corpuscular HGB Conc 33.1 g/dL (30.0-36.0); Mean Corpuscular Hemoglobin 29.2 pg (28.0-34.0); Mean Corpuscular Volume 88.2 fl (81-99); Mean Platelet Volume 10.5 fL (7.4-10.4); Monocytes # 1.5 10^3/uL (0.2-0.9); Monocytes % 8.5 %; Neutrophils # 12.57 10^3/uL (1.8-7.7); Neutrophils % 72.4 %; Nucleated Red Blood Cells % 0 %; Platelet Count 260 10^3/cmm (130-400); Red Blood Count 4.56 10^6/uL (4.1-5.3); Red Cell Distribution Width 14.1 % (12.1-15.1); White Blood Count 17.4 10^3/uL (4.0-10.0)
--- NOTE | 2023-01-01 05:04 | P.HP_ITS ---
Providers/Chief Complaint Admitting Physician: Tariq Smith MD Primary Care Provider: Tariq Smith MD Chief Complaint: Contractions History of Present Illness Brittany Mcdermott is a 27 year old @ 38.5 weeks by LMP c/w 12 wk US. Preg c/b prior LTCS for arrest of descent/CPD, h/o gHTN, elevated 1-hr GTT with normal 3-hr GTT. The patient began to have contractions starting sporadically on the morning of 12/31/2022. They then increased in frequency and were more consistent starting around 6 PM. She continued to contract regularly and presented to labor and delivery triage at approximately 3 AM on 01/01/2023. She was 2 cm dilated at that time. After 1 hour she had changed to 3 cm dilation. For this reason she was admitted. The patient requests a repeat low-transverse section. The patient denies any chest pains, cough, shortness of breath, nausea, v omiting, diarrhea, constipation, dysuria, vaginal bleeding, leakage of fluid. She last ate yogurt at approximately 10 PM and had a drink of water around 11:30 PM. Medications/Allergies Home Medications Medication Instructions Recorded Confirmed Last Taken Type multivitamin no.51-ferrous 1 cap PO BREAKFAST #30 caps 12/23/20 12/27/22 Unknown Rx fumarate 106.5 mg-folic acid 1 mg capsule (-U) cephalexin 500 mg capsule 500 mg PO TID #30 caps 12/06/22 12/27/22 Unknown Rx Allergies Allergy/AdvReac Type Severity Reaction Status Date / Time amoxicillin Allergy ALGY-Hives Verified 12/20/20 08:25 diphenhydramine Allergy Unknown Verified 12/20/20 08:25 [From Benadryl] PFSH Acute PFSH: Medical History Humerus fracture Surgical History Hx of section Social History Smoking and tobacco status: never smoked Alcohol intake: never Substance/Drug Use: never Female Reproductive History: : 2 Vitals/I&O/Wt Last Vital Signs Pulse 88 01/01/23 04:02 BP 130/77 01/01/23 04:02 Weight last 48 hrs Weight 233 lb Physical Exam Narrative: General: Alert and oriented x3 Eyes: Pupils equal round and reactive to light and accommodation Mouth: Mucous membranes moist, pharynx non-erythematous Cardiac: Regular rate and rhythm without murmurs Lungs: Clear to auscultation bilaterally without wheezes, crackles or rhonchi Abdomen: Soft, non-tender, fundus consistent with gestational age. Prior incision line is clean and dry and well-healed without signs of infection. Extremities: Trace edema in the bilateral lower extremities Data 01/01/23 04:31 A&P Assessment and plan (1) Supervision of normal intrauterine in multigravida: The patient presents to labor and delivery in spontaneous labor. She was offered a trial of labor after section, but she declined and we will proceed with a repeat low-transverse section. She had initially wanted to have a bilateral tubal ligation. She decided against this today. Her wishes to get a vasectomy instead. The patient is in agreement with the current plan of care and we will proceed with a repeat low-transverse section. Attestations Medical Necessity Statement*: The patient will be here for greater than 2 midnights due to routine intrapartum and management of labor and delivery. Coding Level of Care Code Acute Code for Chg Fwd Diagnoses Supervision of normal intrauterine in multigravida Z34.80
--- NOTE | 2023-01-01 07:15 | PM.OP ---
Operative Report Date of procedure: January 01, 2023 Pre-op diagnosis: 1. Intrauterine at 38.5 weeks gestation 2. Prior low-transverse section 3. Elevated 1 hour GTT with normal 3-hour GTT 4. Spontaneous labor Post-op diagnosis: 1. Intrauterine status post repeat low-transverse section at 38.5 weeks gestation 2. Prior low-transverse section 3. Elevated 1 hour GTT with normal 3-hour GTT 4. Spontaneous labor 5. Delivery of healthy male weighing 8 pounds 3 ounces with Apgars of 8 and 8 Post-op findings: 1. Intact placenta with central umbilical cord insertion site 2. Delivery of healthy infant male weighing 8 pounds 3 ounces with Apgars of 8 and 8 Procedure done: Repeat low-transverse section Specimens removed/disposition: Placenta discarded Surgeon: Tariq Smith MD Estimated blood loss (mL): 300 Complications: None Findings: Moderate scar tissue present. Brief History: Brittany Mcdermott is a 27 year old G2 now P2 status post repeat low-transverse section @ 38.5 weeks by LMP c/w 12 wk US. Preg c/b prior LTCS for arrest of descent/CPD, h/o gHTN, elevated 1-hr GTT with normal 3-hr GTT. The patient began to have contractions starting sporadically on the morning of 12/31/2022.? They then increased in frequency and were more consistent starting around 6 PM.? She continued to contract regularly and presented to labor and delivery triage at approximately 3 AM on 01/01/2023.? She was 2 cm dilated at that time.? After 1 hour she had changed to 3 cm dilation.? For this reason she was admitted.? The patient requested a repeat low-transverse section. Procedure: After informed consent was obtained, the patient was taken to the operating room and the patient was prepped and draped in a normal sterile fashion in the dorsal supine position.? A spinal was placed and adequate anesthesia was obtained.? At 5:31 AM a Pfannenstiel skin incision was made and carried through to the underlying layer of fascia using a scalpel.? The fascial incision was then extended laterally using curved Mayos.? The fascia was then grasped with Lina clamps and the underlying rectus muscles were dissected off taking care to avoid injury to the underlying tissues.? The peritoneum was entered bluntly with one digit.? It was then bluntly, then sharply due to moderate scar tissue.? The bladder blade was placed and the vesicouterine peritoneum was well below the lower uterine segment of the uterus.? The uterine incision was made in the lower uterine segment in a transverse fashion with the scalpel at 5:42 AM.? The amniotic membrane was entered bluntly and a large amount of clear fluid was noted.? Uterine pressure was placed and the 's head delivered without complication at 5:45 AM.? There was no nuchal cord.? The mouth and nose were suctioned.? The rest of the delivered without difficulty.? The infant took a breath immediately upon delivery.? The cord was clamped and cut and the was handed to the awaiting pediatric nurses.? The placenta was then manually expressed.? The uterus was not able to be exteriorized from the abdomen due to scar tissue.? A wet lap was used to clear the uterus of clots and debris.? The bladder blade was reinserted and the uterine incision was closed using 0 chromic in a running locking fashion.? The uterus was noted to be firm.? A second layer of the same suture was used in the same manner.? Excellent hemostasis was obtained. Next, the gutters were cleared of any further clots and debris and the uterine incision was again inspected and hemostasis was noted.? The subfascial tissue was inspected for hemostasis and the peritoneum was re-approximated using 2-0 plain in a running fashion.? The fascia was then re-approximated using 0 Vicryl in a running fashion.? The subcutaneous tissue was inspected for hemostasis.? Stacey's fascia was then re-approximated using 3-0 plain in a running fashion.? Good hemostasis was noted.? The subcutaneous tissue was then re-approximated using a subcuticular stitch.? The patient tolerated the procedure well and was recovered in stable condition.? Estimated blood loss was 300 mL. Urine in the Newman catheter was clear. The patient was taken to recovery in good condition.
[2023-01-01] MEDS: ketorolac 30 mg/mL INJ IVP (08:08)
[2023-01-01] MEDS: dextrose 5%-lactated ringers 1,000 ML 125 ML IV (08:08)
--- NOTE | 2023-01-01 15:57 | ANE.PACU2 ---
Inpatient post-anesthesia follow up: Airway intact: Yes Vital signs: Temperature 98.4 F Pulse Rate 87 Respiratory Rate 17 Blood Pressure 121/70 Pulse Oximetry 98 Oxygen Delivery Me thod Room Air Oxygen Flow Rate Fraction of Inspir ed Oxygen Hydration adequate: Yes Nausea and vomiting: No Pain level: 2 Mental status: Baseline
[2023-01-01] MEDS: acetaminophen 325 mg Tablet 650 MG PO (16:01)
[2023-01-01] MEDS: docusate sodium 100 mg Capsule PO (20:34)
[2023-01-01] MEDS: ibuprofen 800 mg tablet PO (20:34)
[2023-01-01] MEDS: ferrous sulfate EC 325 mg Tablet PO (20:34)
[2023-01-01] MEDS: simethicone 80 mg Chew PO (20:35)
[2023-01-01] MEDS: lanolin oint 7 gm 1 APPLIC TOPICAL (20:35)
[2023-01-01 21:54] LABS: Hematocrit 35.2 % (37.0-47.0); Hemoglobin 11.5 g/dL (11.5-15.3); Mean Corpuscular HGB Conc 32.7 g/dL (30.0-36.0); Mean Corpuscular Hemoglobin 28.8 pg (28.0-34.0); Mean Corpuscular Volume 88.2 fl (81-99); Mean Platelet Volume 10.2 fL (7.4-10.4); Platelet Count 242 10^3/cmm (130-400); Red Blood Count 3.99 10^6/uL (4.1-5.3); Red Cell Distribution Width 14.1 % (12.1-15.1); White Blood Count 14.6 10^3/uL (4.0-10.0)
[2023-01-02 04:00] VITALS: BP 110/75; PULSE 89; RESP 18; TEMP 36.4; O2SAT 96
[2023-01-02] MEDS: simethicone 80 mg Chew PO (04:55)
[2023-01-02] MEDS: acetaminophen 325 mg Tablet 650 MG PO (04:55)
[2023-01-02 07:30] VITALS: BP 122/73; PULSE 89; RESP 18; TEMP 36.7
[2023-01-02] MEDS: docusate sodium 100 mg Capsule PO (09:46)
[2023-01-02] MEDS: prenatal vitamin Capsule 1 CAP PO (09:46)
[2023-01-02] MEDS: ferrous sulfate EC 325 mg Tablet PO (09:46)
[2023-01-02] MEDS: ibuprofen 800 mg tablet PO (09:47)
[2023-01-02 15:15] VITALS: BP 126/81; PULSE 89; RESP 18; TEMP 36.7
--- NOTE | 2023-01-02 15:21 | PM.DCS ---
Discharge Providers Date of Admission: 01/01/23 04:25 Date of Discharge: January 02, 2023 Attending Provider at Admission: Tariq Smith MD Attending Provider at Discharge: Tariq Smith MD Primary Care Provider: Tariq Smith MD Diagnoses at Discharge Discharge Diagnosis (1) Supervision of normal intrauterine in multigravida: Status: Acute Other Information Additional DC diagnoses/information: 1.? Intrauterine status post repeat low-transverse section at 38.5 weeks gestation 2.? Prior low-transverse section 3.? Elevated 1 hour GTT with normal 3-hour GTT 4.? Spontaneous labor 5.? Delivery of healthy infant male weighing 8 pounds 3 ounces with Apgars of 8 and 8 Reason for Visit Reason for Visit: Contractions Brief History: Brittany Mcdermott is a 27 year old G2 now P2 status post repeat low-transverse section @ 38.5 weeks by LMP c/w 12 wk US. Preg c/b prior LTCS for arrest of descent/CPD, h/o gHTN, elevated 1-hr GTT with normal 3-hr GTT. Hospital Course Hospital Course The patient began to have contractions starting sporadically on the morning of 12/31/2022.? They then increased in frequency and were more consistent starting around 6 PM.? She continued to contract regularly and presented to labor and delivery triage at approximately 3 AM on 01/01/2023.? She was 2 cm dilated at that time.? After 1 hour she had changed to 3 cm dilation.? For this reason she was admitted.? The patient requested a repeat low-transverse section. She had initially wanted to have a bilateral tubal ligation, but then changed her mind as her stated that he would prefer to have a vasectomy. The patient had an uncomplicated section with the exception of having moderate scar tissue and the uterus had to be closed in the abdomen as it could not be exteriorized. The patient is doing very well . She is ambulating, voiding, passing gas and tolerating food by mouth. Her pain is well controlled with Tylenol and Motrin alone. She has no signs of infection at this time. Routine discharge instructions were discussed including care for her section. All questions were answered. We will plan to follow-up on Saturday for further evaluation. Physical Exam Narrative: General: Alert and oriented x3 Cardiac: Regular rate and rhythm without murmurs Lungs: Clear to auscultation bilaterally without wheezes, crackles or rhonchi Abdomen: Soft, mild tenderness over uterus. The uterus is firm and 2 cm below the umbilicus. Incision is clean and dry without signs of infection or dehiscence. Extremities: +1 pitting edema in the bilateral lower extremities Urinary Catheter Management: Newman Latex: Cath Placed During This Visit: yes, but has since been removed by the nurse Reason for Continuing Indwelling Catheter: Decision to DC Catheter Urinary Catheter Date of Insertion: 01/01/23 Urinary Catheter Time of Insertion: 05:20 Date Urinary Catheter Removed: 01/01/23 Time Urinary Catheter Discontinued: 19:50 Discharge Data Studies Completed and Pending Laboratory Results WBC 14.6 10^3/uL (4.0-10.0) H 01/01/23 21:49 RBC 3.99 10^6/uL (4.1-5.3) L 01/01/23 21:49 Hgb 11.5 g/dL (11.5-15.3) 01/01/23 21:49 Hct 35.2 % (37.0-47.0) L 01/01/23 21:49 MCV 88.2 fl (81-99) 01/01/23 21:49 MCH 28.8 pg (28.0-34.0) 01/01/23 21:49 MCHC 32.7 g/dL (30.0-36.0) 01/01/23 21:49 RDW 14.1 % (12.1-15.1) 01/01/23 21:49 Plt Count 242 10^3/cmm (130-400) 01/01/23 21:49 MPV 10.2 fL (7.4-10.4) 01/01/23 21:49 Neut % (Auto) 72.4 % 01/01/23 04:31 Lymph % (Auto) 16.9 % 01/01/23 04:31 Wetzel % (Auto) 8.5 % 01/01/23 04:31 Eos % (Auto) 1.2 % 01/01/23 04:31 Baso % (Auto) 0.4 % 01/01/23 04:31 Neut # (Auto) 12.57 10^3/uL (1.8-7.7) H 01/01/23 04:31 Lymph # (Auto) 2.9 10^3/uL (0.8-4.8) 01/01/23 04:31 Wetzel # (Auto) 1.5 10^3/uL (0.2-0.9) H 01/01/23 04:31 Eos # (Auto) 0.2 10^3/uL (0.0-0.8) 01/01/23 04:31 Baso # (Auto) 0.1 10^3/uL (0.0-0.1) 01/01/23 04:31 Nucleated RBC % (auto) 0 % 01/01/23 04:31 Nucleated RBCs # 0.0 /100WBC 01/01/23 04:31 Blood Type O Positive 01/01/23 04:33 Rho(D) Type Positive 01/01/23 04:33 Antibody Screen Negative 01/01/23 04:33 Vitals Last Vital Signs Temp 98.1 F 01/02/23 07:30 Pulse 89 01/02/23 07:30 Resp 18 01/02/23 07:30 BP 122/73 01/02/23 07:30 Pulse Ox 96 01/02/23 04:00 O2 Del Method Room Air 01/02/23 04:00 Discharge Plan Discharge Patient Disposition: Home Condition: Good Prescriptions: New oxycodone-acetaminophen 5-325 mg Tablet 1 - 2 tab PO Q4H PRN (Reason: Moderate To Severe Pain) Qty: 15 0RF ibuprofen 800 mg Tablet 800 mg PO TID Qty: 60 0RF Continued -U 106.5-1 mg Capsule 1 cap PO BREAKFAST Qty: 30 0RF Discontinued cephalexin 500 mg capsule 500 mg PO TID Qty: 30 0RF Discharge Orders: Discharge Order (Routine); Ordered 01/02/23 Ordered By: Tariq Smith Referrals: Tariq Smith MD [Primary Care Provider] - 01/04/23 Discharge Diet: Regular Discharge Activity: Limit activity as instructed Patient Instructions: Depression (DC), Bleeding (DC), Preeclampsia and Eclampsia After Delivery (GEN), (DC), Hemorrhage (DC), OB Discharge Report, OB Food/Drug Interaction Guide, OB Care at Home, Opioid Safety, OB Your Care - [facility] Activity Restrictions/Additional Instructions: If you have any concern for infection in your incision site, please seek immediate medical attention. I would recommend showers instead of baths for the first 6 weeks to decrease risk for infection. Discharge Attestations Time Spent in Discharge Care*: greater than 30 min Quality Metrics Clinical Quality Measures [ No reported AMI, CVA or VTE this stay] Coding Level of Care Code Acute Code for Chg Fwd Diagnoses Supervision of normal intrauterine in multigravida Z34.80
[2023-01-02 15:55] VITALS: BP 126/81; PULSE 89; RESP 18; TEMP 36.7
== END 2023-01-02 15:55 | disposition home or self-care (01) | DRG 788 ==
LOC: OPOB 04:26 → OBGYN 04:26
PROVIDERS: Admitting Provider Family Medicine; PCP Family Medicine; Visit Provider Family Medicine
PROC: 10D00Z1 Extraction of Products of Conception, Low, Open Approach (ICD-10-PCS; CPT 59514; principal; 2023-01-01 05:10)
DX: O34.211 Maternal care for low transverse scar from previous cesarean delivery (principal); Z3A.38 38 weeks gestation of pregnancy; Z37.0 Single live birth
CPT/HCPCS: 36415; 51702; 59025; 59409; 85025; 85027; 86850; 86900; 96374; 96375; 99211; J0690; J1885; J2274; J2405; J2590; J2765; J3010; J3490; J7030; J7120; J7121